=== PATIENT | female | born 1960 | race Two or more races ===

== ENCOUNTER 2016-08-31 11:19 | Observation (INO) | payer MEDICAID ==
[2016-08-31 12:06] LABS: ABSOLUTE NEUTROPHIL COUNT 5.7 K/mm3 (1.8-7.7); BASO # 0.1 K/mm3 (0.0-0.2); BASO % 0.8 % (0.2-1.0); EOS % 0.3 % (0.9-2.9); HEMATOCRIT 40.5 % (37.0-47.0); HEMOGLOBIN 12.9 gm/l (12.0-16.0); IMM NEUT% 0.2 % (0-1); LYMPH # 2.5 (1.0-4.8); LYMPH % 28.3 % (15-45); MEAN CELL VOLUME 83.2 fl (81.0-99.0); MEAN CORPUSCULAR HEMOGLOBIN 26.5 pg (27.0-31.0); MEAN CORPUSCULAR HGB CONC 31.9 g/dl (33.0-37.0); MEAN PLATELET VOLUME 10.5 fl (7.4-10.4); MONO # 0.6 (0.0-0.8); MONO % 6.7 % (4-12); NEUT % 63.7 % (43-75); PLATELET COUNT 277 K/mm3 (130-400)
--- NOTE | 2016-08-31 12:19 | RAD ---
Exam: Two-view chest COMPARISON: None INDICATION: Chest pain. Dizzy. FINDINGS: PA and lateral views of the chest were obtained. Cardiac silhouette is within normal limits. Lungs are well-inflated. There is no focal airspace disease or pleural effusion. There is a focal area of relative increased density which projects over the medial right lung apex, which may be related to the right T4 transverse process, fourth rib or clavicular head. Bones of the chest wall otherwise unremarkable. Calcific tendinosis is noted about the right shoulder. IMPRESSION: 1. No acute pulmonary process. No acute findings identified to explain chest pain. 2. Relative area of increased density projects over the medial right lung apex. Whether this is related to the right T4 transverse process, medial right fourth rib, clavicular head or less likely pulmonary parenchyma is uncertain. This is of uncertain clinical significance. Correlate for any pain in this location.
[2016-08-31 12:21] LABS: ALBUMIN 3.8 gm/dL (3.5-5.7); CALCIUM 8.6 mg/dL (8.6-10.3)
[2016-08-31 12:25] LABS: TROPONIN I 0.02 ng/ml (0.0-0.06)
[2016-08-31 12:29] LABS: CKMB ISOENZYME 1.2 ng/ml (0.6-6.3)
[2016-08-31] MEDS ORDERED: ASPIRIN CHEWTAB 81 MG TABLET ONE (14:51)
[2016-08-31] MEDS ORDERED: REGADENOSON 0.1 MG DOSE IV ONE (18:00)
[2016-08-31 20:49] VITALS: BMI 28.6
[2016-08-31] MEDS ORDERED: CALCIUM CARBONATE 500 MG TAB.CHEW PO PRN (21:35)
[2016-08-31] MEDS ORDERED: BLISTEX LIPSTICK 1 EACH TP PRN (21:35)
[2016-08-31] MEDS ORDERED: BISACODYL 5 MG TABLET.EC PO PRN (21:35)
[2016-08-31] MEDS ORDERED: MAGNESIUM HYDROXIDE 30 ML UDCUP PO PRN (21:35)
[2016-08-31] MEDS ORDERED: SODIUM CHLORIDE 0.9% 100 ML IV PRN (21:35)
[2016-08-31] MEDS ORDERED: BISACODYL 10 MG SUP PR PRN (21:35)
[2016-08-31] MEDS ORDERED: ACETAMINOPHEN 325 MG TABLET PO PRN (21:35)
[2016-08-31] MEDS ORDERED: MENTHOL/CETYLPYRD 1 EACH LOZENGE PO PRN (21:35)
--- NOTE | 2016-09-01 07:23 | HP ---
Clarissa Howard [id number] DATE OF ADMISSION: 08/31/2016 CHIEF COMPLAINT: Chest pain. HISTORY OF PRESENT ILLNESS: The patient is a 59-year-old female without special cardiac risks who reported an episode of chest pain today lasting about 20 minutes. She recalls he was working on her plants and as she stood up she noted a rapid heart rate, palpitation sensation, and then had some head spinning and weakness along with some chest pressure and pain. She remembers going to the Urgent Care previously and she seen a community artist in [place] who did a stress test perhaps in the summer of 2015 along with an event monitor without any significant findings previously. She has not had an echocardiogram or a myoview test from her recollection. She recalls a similar symptoms on Monday, but today's was worse. She did have a little bit of nausea with this and she notes that she can have symptoms with carrying heavy things sometimes. PAST MEDICAL HISTORY: Negative. She does not have diabetes. She has had six kids. She does report a history of some type of blood clot earlier in 2015 and had been recommended to take aspirin, but did not have a CT or any particular evaluation for this, so it is not clear how this diagnosis was reached. PAST SURGICAL HISTORY: She has not had any surgery except for her wisdom teeth being removed. ALLERGIES: None. MEDICATIONS: She takes: 1. Iron pill three times daily. 2. Tylenol as needed. SOCIAL HISTORY: She has six kids. Lives with her significant other. No smoking, no alcohol. She is not presently working outside the home. FAMILY HISTORY: Mother is 70, but has had no significant medical problems. Her father at age 90. Her siblings have not had any heart problems and her kids have been healthy. REVIEW OF SYSTEMS: Eyes have been okay. Ears okay. Nose okay. Mouth is okay. She does have a molar that is bothering her. She reports having a history of a blood clot treated with aspirin, but it is not clear what the diagnosis was regarding this. No stomach complaints although, she can have gastritis sometimes and constipation sometimes. Cough, none. No urinary complaints. Last menstrual period current. Arms have been okay. Legs have been okay. She has had some cramping associated with her menses, which is usual. She has had a little bit of pain behind her right shoulder. She has had no history of stroke. No skin complaints. She has also had pain in her right knee for the last year associated with a fall, this is both anterior and posterior on the knee and can radiate down her keita toward her toe. PHYSICAL EXAMINATION: GENERAL: Nontoxic female. VITAL SIGNS: Blood pressure 126/72, temperature 98.5, pulse 76, saturation 98% on room air, respirations 18. HEENT: Head is normocephalic, atraumatic. Ears, nose, and throat are unremarkable. Mouth grossly unremarkable. Dentition not evaluated. NECK: Supple. No jugular venous distention. LUNGS: Generally clear to auscultation. HEART: Regular rate and rhythm without murmur. ABDOMEN: Soft, nontender, nondistended. Bowel sounds are normal. Negative Hu's sign noted. GENITOURINARY: Deferred. RECTAL: Deferred. MUSCULOSKELETAL: Evaluation of the sternoclavicular joint appears to be normal today. EXTREMITIES: Legs unremarkable. Her right knee does not suggest an effusion or any abnormal warmth or redness. Ankles without edema. Feet normal. NEUROLOGIC: Grossly normal. LABORATORY: White count 9.0, hemoglobin 12.9, platelets 277, MCV is 83.2. Sodium 135, potassium 4.0, chloride 103, CO2 24, BUN 10, creatinine 0.8, glucose 97, calcium is 8.6. LFT's are normal. Troponin 0.02, 0.04, and 0.05, CK is 1.2. DIAGNOSTICS: Chest x-ray no acute pulmonary process, but possible artifact suggested, relative area of increased density projects over the right medial lung apex whether this is the right T4 transverse process, medial right fourth rib, clavicular head, or less likely pulmonary parenchyma is uncertain clinical significance, correlate for any pain in this location. ASSESSMENT: 1. Episode of chest pain with rapid heart rate and lightheaded. Previous evaluation with cardiology July 2016 was performed, but was not revealing. We will plan to continue on telemetry tonight. Plan an echocardiogram to evaluate for valvular disease and do a myoview exam in the morning. 2. Right knee pain. Check x-ray, check uric acid, and check a D-dimer. 3. Questionable history of blood clot. We will check a D-dimer and if abnormal will consider whether CT is appropriate. 4. Venous thrombosis prophylaxis. Patient is currently considered low risk being an ambulatory female. 5. A 55-year-old female. We will check HCG, but would be unlikely in this situation. 6. Abnormal chest x-ray finding. We will repeat chest x-ray with PA and lateral to clarify. Chest x-ray with increased density projecting over the right medial lung apex, suspect artifact. 7. Calcific tendonosis suggested in the right shoulder. JOB: [id number] CC: Dr. Rocío Rudolph
--- NOTE | 2016-09-01 08:14 | RAD ---
Exam: Three-view right knee COMPARISON: None INDICATION: Right knee pain since falling one year ago. Findings: AP, lateral and sunrise views of the right knee were obtained. There is no joint effusion. Alignment is normal. Overall normal bone mineralization. No periosteal reaction is seen. Joint spaces are maintained and there is no significant osteophyte formation. IMPRESSION: Negative three-view right knee.
[2016-09-01] MEDS ORDERED: DOCUSATE SODIUM 100 MG CAPSULE PO SCH (09:00)
[2016-09-01 16:10] VITALS: BP 133/91
--- NOTE | 2016-09-01 16:47 | NUC MED ---
Exam: Nuclear medicine myocardial SPECT, ejection fraction and wall motion Comparison: None Indication: Chest pain. Technique: 12.1 mCi of technetium 99m sestamibi were administered for the rest portion of the exam and SPECT imaging was obtained per protocol. Stress was achieved via the administration of 0.4 mg of LexiScan. At maximum stress, 36.2 mCi of technetium 99m sestamibi were administered and SPECT imaging was obtained per protocol. Findings: Ejection fraction is calculated at 84%. There are no focal wall motion abnormalities. Myocardial perfusion is normal at stress. Relative decrease in perfusion within the anterior posterior lawson is seen at rest and likely related to attenuation artifact. Overall perfusion appears improved at stress compared with rest. Impression: 1. No evidence of significant stress-induced ischemia. 2. No focal wall motion abnormalities. 3. Ejection fraction 84%. Report called to Dr. Rapp 1643 hours 09/01/2016.
--- NOTE | 2016-09-02 08:07 | DS ---
Clarissa Howard [id number] DATE OF ADMISSION: August 31, 2016 DATE OF DISCHARGE: September 01, 2016 DISCHARGE DIAGNOSES: 1. Chest pain. 2. Patient also complained of right knee pain and probably has referred pain from suspected lumbar nerve root compression and suspected degenerative disc disease in her lower back. PROCEDURES PERFORMED DURING THE HOSPITALIZATION: Included a right knee x-ray which was negative and a myocardial perfusion study which showed a normal ejection fraction, normal wall motion, and no perfusion abnormalities. TO SUMMARIZE THE ADMISSION AND HOSPITAL COURSE: The patient is a 59-year-old female who has been having chest pain symptoms off and on over the past week without clear pattern. She was referred to the hospitalist service for observation. During her period of observation she also had a right knee x-ray because of some right knee pain which was read as negative. She had serial cardiac enzymes which were negative. She underwent a myocardial perfusion study which showed normal findings. She was felt to be medically stable for discharge. PHYSICAL EXAMINATION: VITAL SIGNS: At discharge showed temperature 97.9, pulse 71, blood pressure 133/91, respirations 18, oxygen saturation is 100% on room air. GENERAL: This is a slightly obese female in no acute distress. HEENT: Unremarkable. NECK: Supple without lymphadenopathy or thyromegaly. LUNGS: Clear to auscultation bilaterally. CARDIOVASCULAR: Reveals a regular rate and rhythm without a murmur. EXTREMITIES: No peripheral edema. DISPOSITION: Home. DISCHARGE CONDITION: Good. DISCHARGE MEDICATIONS: She will take: 1. Iron sulfate 325 mg three times daily as before. 2. Tylenol Extra Strength 1000 mg up to four times daily as needed for pain. FOLLOW UP: She will follow up with her primary care provider VIPUL Oden. JOB: [id number] CC: VIPUL Oden
== END 2016-09-01 17:29 | disposition home or self-care (01) ==
LOC: ED 11:19 → MS 17:59
PROVIDERS: ADMIT Family Medicine; ATTEND Family Medicine
DX: R07.9 Chest pain, unspecified (principal); M25.561 Pain in right knee; G54.4 Lumbosacral root disorders, not elsewhere classified; M65.811 Other synovitis and tenosynovitis, right shoulder; R93.8 Abnormal findings on diagnostic imaging of other specified body structures
CPT/HCPCS: 85379; 84703; 85025; 82550; 82553; 80053; 84443; 84484 ×4; 84550; 36415; 71020; 73562; 78452; 99284; 93306; 93017; 93005 ×3; 99285; A9270; J2785; A9500